=== PATIENT | male | born 1965 | race Caucasian/White ===

== ENCOUNTER 2023-06-17 10:39 | Emergency (ER) | payer OTHER, SELFPAY ==
[2023-06-17 10:41] VITALS: BP 133/88; PULSE 107; RESP 18; TEMP 37.7; O2SAT 96; BMI 28.1
[2023-06-17 10:44] VITALS: BP 133/88; PULSE 107; RESP 18; TEMP 37.7; O2SAT 96
[2023-06-17 11:44] VITALS: BP 128/78; PULSE 78; RESP 16; TEMP 36.6; O2SAT 98
--- NOTE | 2023-06-17 11:56 | EX.ED.DYSGE1 ---
HPI History of Present Illness Chief Complaint: General Illness Narrative Narrative: 57-year-old male with fevers, chills, myalgias since Sunday. was sick initially and she recovered. He has continued symptoms. He was tested for COVID on Sunday at the urgent care and this was negative. He went back on and was tested for strep throat at the urgent care. Patient was given Flonase and Tessalon Perles which has not helped. He still feels like he is getting body aches and chills and had a fever last night. Patient still has a cough which is dry. He states he does have a headache but it is improved with Tylenol and ibuprofen when he takes it. He has not been taking this [id number]. PFSH PFSH Home Medications azithromycin 250 mg tablet 250 mg PO DAILY #4 TABLETS 06/17/23 [Rx Last Taken Unknown] codeine 10 mg-guaifenesin 100 mg/5 mL oral liquid 5 ml PO Q6H PRN flu symptoms #118 mL 06/17/23 [Rx Last Taken Unknown] metoclopramide HCl 10 mg tablet (Reglan) 10 mg PO Q6H PRN nausea and vomiting #14 tabs 06/17/23 [Rx Last Taken Unknown] Allergy/AdvReac Type Severity Reaction Status Date / Time No Known Allergies Allergy Verified 06/17/23 10:40 Social History Smoking Status: Former smoker ROS ROS ED Constitutional Constitutional ED: Reports chills and fever(s); Denies sweats Eyes Eyes: Denies blurry vision or change in vision ENT ENT ED: Reports sore throat; Denies ear pain or rhinorrhea Cardiovascular Cardiovascular: Denies chest pain, palpitations or racing heartbeat Respiratory/Chest Respiratory/Chest: Reports cough; Denies dyspnea or sputum Gastrointestinal Gastrointestinal: Denies abdominal pain, constipation, diarrhea or vomiting Genitourinary Genitourinary ED: Denies dysuria, hematuria or urinary frequency Musculoskeletal Musculoskeletal: Reports myalgias; Denies arthralgias or neck pain Integumentary Denies abscess, Abrasions or rash Neurologic Neurologic: Reports headache(s); Denies paresthesias or weakness Psychiatric Psychiatric: Denies anxiety, depression, suicidal ideation or suicidal thoughts Endocrine Endocrinology: Denies polydipsia or polyuria EXAM Physical Exam Const Vital Signs: 06/17/23 10:41 06/17/23 10:49 06/17/23 10:44 Temperature 99.9 F H 99.9 F H Temperature Source Temporal Oral Pulse Rate 107 H 107 H Respiratory Rate 18 18 Respiratory Pattern Normal Blood Pressure 133/88 H 133/88 H Blood Pressure Mean 103 103 Pulse Ox 96 96 Oxygen Delivery Method Room Air Room Air Positive well nourished General Appearance ED: NAD; Negative for pallor HEENT Reports moist mucous membranes Eyes PERRL and EOMs intact bilaterally Neck no lymphadenopathy Chest Wall inspection of chest normal Resp normal respiratory effort and clear to auscultation bilaterally Auscultation: Negative for rales, rhonchi or wheezes Cardio regular rate and regular rhythm GI normal to inspection, nondistended, normoactive bowel sounds Neuro oriented x3 and CN's II-XII intact bilaterally Sensorium / Orientation: alert Motor Exam: strength 5/5 throughout Psych mental status grossly normal Skin no rashes or lesions noted General Skin Exam: Negative for jaundice or pallor MDM MDM MDM Narrative Medical decision making narrative: 57-year-old male with headache, fever, chills, body aches. He tested positive for influenza today. Since his symptoms are ongoing for almost a week now we will cover him for pneumonia and give him a Z-Inocente. He was also given cough syrup with codeine to help with cough and burning with cough. Patient will take Tylenol and ibuprofen as needed for headaches. He is given Reglan for nausea and headaches as well. Return precautions were discussed. Impression: 1. Headache 2. History of influenza 3. Pneumonia Discharge Plan Triage Chief Complaint: General Illness ED Provider: Jovan Guardado Dx/Rx/DC Orders Instructions: ED Viral Syndrome (Adult) Prescriptions: New codeine-guaifenesin 10-100 mg/5 mL liquid 5 ml PO Q6H PRN (Reason: flu symptoms) Qty: 118 0RF azithromycin 250 mg tablet 250 mg PO DAILY Qty: 4 0RF metoclopramide HCl [Reglan] 10 mg tablet 10 mg PO Q6H PRN (Reason: nausea and vomiting) Qty: 14 0RF Primary Care Provider: Care Physician,No Primary Referrals: [facility] [Outside] - 3-5 Days Care Physician,No Primary [Primary Care Provider] - Disposition Disposition: Home, Self Care
[2023-06-17] MEDS: Azithromycin 250 MG Tablet 500 MG PO (11:59)
[2023-06-17] MEDS: Acetaminophen 500 MG Tablet 1000 MG PO (11:59)
[2023-06-17] MEDS: Metoclopramide 10 MG Tablet PO (12:00)
[2023-06-17 12:07] VITALS: BP 128/78; PULSE 82; RESP 18; TEMP 36.6; O2SAT 98
== END 2023-06-17 12:09 | disposition home or self-care (01) ==
PROVIDERS: Emergency Provider Student in an Organized Health Care Education/Training Program; Visit Provider Student in an Organized Health Care Education/Training Program
DX: J18.9 Pneumonia, unspecified organism (principal); Z87.891 Personal history of nicotine dependence; R51.9 Headache, unspecified; Z87.09 Personal history of other diseases of the respiratory system
CPT/HCPCS: 87631; 99282